=== PATIENT | female | born 1935 | race Caucasian/White ===

== ENCOUNTER → 2017-10-31 | Outpatient (CLI) | payer MEDICARE, OTHER ==
[~2017-10-31] MED LIST: FURO20; LEVSOD88; METO5A PO; Pepcid40 MG PO; Ultram50 MG PO; ZOLP10 PO
== END ==
LOC: LAB EV 12:02
DX: N39.0 Urinary tract infection, site not specified (principal)
CPT/HCPCS: 87077; 87086; 87186

== ENCOUNTER → 2018-11-26 | Outpatient (CLI) | payer MEDICARE, OTHER | END | disposition home or self-care (01) | LOC: LAB SHORT 15:57 → PLD 15:57 | DX: L92.3 Foreign body granuloma of the skin and subcutaneous tissue (principal); Z18.9 Retained foreign body fragments, unspecified material; L81.8 Other specified disorders of pigmentation | CPT/HCPCS: 88305 ==

== ENCOUNTER → 2019-10-06 | Outpatient (CLI) | payer MEDICARE, OTHER ==
[2019-10-08 13:44] LABS: Stool Occult Bld Immuno 1 Negative (NEGATIVE); Stool Occult Bld Immuno 2 Negative (NEGATIVE)
== END | disposition home or self-care (01) ==
LOC: LAB EV 10:00
PROVIDERS: Internal Medicine Gastroenterology
DX: K57.30 Diverticulosis of large intestine without perforation or abscess without bleeding (principal); Z86.010 Personal history of colon polyps
CPT/HCPCS: 82274

== ENCOUNTER → 2019-12-12 | Outpatient (CLI) | payer MEDICARE, OTHER | END | disposition home or self-care (01) | LOC: LAB SHORT 08:51 → PLD 08:51 | DX: D48.5 Neoplasm of uncertain behavior of skin (principal) | CPT/HCPCS: 88305 ==

== ENCOUNTER 2020-07-10 21:44 | Emergency (ER) | payer MEDICARE, OTHER ==
[~2020-07-10] VITALS: Ht 154.9 cm; Wt 68.0 kg
[2020-07-10 22:48] LABS: BASOPHILS ABSOLUTE AUTO 0.02 K/mm3 (0.00-0.23); BASOPHILS PERCENT AUTO 0 % (0-2); EOSINOPHILS ABSOLUTE AUTO 0.06 K/mm3 (0.00-0.68); EOSINOPHILS PERCENT AUTO 1 % (0-6); Hematocrit 42.3 % (33.0-51.0); Hemoglobin 13.5 g/dL (11.5-16.0); IMMATURE GRAN ABSOLUTE AUTO 0.01 K/mm3 (0.00-0.10); IMMATURE GRAN PERCENT AUTO 0 % (0-1); LYMPHOCYTES ABSOLUTE AUTO 1.09 K/mm3 (0.84-5.20); LYMPHOCYTES PERCENT AUTO 20 % (21-46); MONOCYTES ABSOLUTE AUTO 0.29 K/mm3 (0.16-1.47); MONOCYTES PERCENT AUTO 5 % (4-13); Mean Corpuscular HGB 29.7 pg (26.0-34.0); Mean Corpuscular HGB Conc 31.9 g/dL (31.5-36.5); Mean Corpuscular Volume 93 fL (80-100); Mean Platelet Volume 10.6 fL (9.1-12.4); NEUTROPHILS ABSOLUTE AUTO 3.96 K/mm3 (1.96-9.15); NEUTROPHILS PERCENT AUTO 73 % (41-73); Platelet Count 322 K/mm3 (150-400); RDW Coefficient Variation 12.3 % (11.7-14.2); RDW Standard Deviation 42.5 fL (35.1-46.3); Red Blood Cell Count 4.55 M/mm3 (3.80-5.20); White Blood Cell Count 5.43 K/mm3 (4.00-11.30)
[2020-07-10 23:01] LABS: Alanine Aminotransfer (ALT/SGP 29 U/L (12-78); Albumin, Blood 3.8 g/dL (3.4-5.0); Albumin/Globulin Ratio 1.2 (0.8-1.8); Alk Phos 81 U/L (50-136); Anion Gap 6 mmol/L (6-16); Aspartate Aminotrans (AST/SGOT 20 U/L (12-37); Bilirubin, Total 0.3 mg/dL (0.1-1.0); Blood Urea Nitrogen 19 mg/dL (8-24); Bun/Creatinine Ratio 23.3 (12.0-20.0); CO2, Blood 25 mmol/L (21-32); Calcium, Blood 9.3 mg/dL (8.5-10.1); Chloride, Blood 106 mmol/L (98-108); Creatinine, Blood 0.82 mg/dL (0.40-1.00); Globulin, Blood 3.3 g/dL (2.2-4.0); Glomerular Filtration Rate >60 (60-); Glucose, Blood 175 mg/dL (70-99); Potassium, Blood 3.8 mmol/L (3.5-5.5); Sodium, Blood 137 mmol/L (136-145); Total Protein, Blood 7.1 g/dL (6.4-8.2); Troponin I <0.015 ng/mL (0.000-0.040)
== END 2020-07-11 01:37 | disposition home or self-care (01) ==
LOC: ER 21:44
PROVIDERS: Physician Assistant
DX: K44.9 Diaphragmatic hernia without obstruction or gangrene (principal); F32.9 Major depressive disorder, single episode, unspecified; E03.9 Hypothyroidism, unspecified; Z87.891 Personal history of nicotine dependence; Z79.899 Other long term (current) drug therapy
CPT/HCPCS: 36415; 71046; 80053; 84484; 85025; 93005; 93010; 99284-25

== ENCOUNTER 2020-08-20 11:51 | Day surgery (SDC) | payer MEDICARE, OTHER ==
[~2020-08-20] VITALS: Ht 157.5 cm; Wt 68.4 kg
[~2020-08-20 11:51] MED LIST changes: +AMBIEN10 MG PO; +BUME1 PO; +DYAZIDE 37.5-21 EACH PO; +EUTHYROX50 MCG PO; +FLONASE ALLERG9.9 M2; +Prozac20 MG PO; +Voltaren100 GM TOP; +Zovirax Cream 5%2 GM
== END 2020-08-20 14:07 | disposition home or self-care (01) ==
LOC: ORSCSDS 11:51
PROVIDERS: Surgery
PROC: 0DB68ZX Excision of Stomach, Via Natural or Artificial Opening Endoscopic, Diagnostic (ICD-10-PCS; principal; 2020-08-20 13:00)
DX: R10.13 Epigastric pain (principal); K44.9 Diaphragmatic hernia without obstruction or gangrene; R11.0 Nausea; K31.89 Other diseases of stomach and duodenum; E66.9 Obesity, unspecified; Z68.30 Body mass index [BMI] 30.0-30.9, adult; Z87.891 Personal history of nicotine dependence; Z79.899 Other long term (current) drug therapy
CPT/HCPCS: 88305; 88342; J2704; J7120

== ENCOUNTER 2020-09-23 06:18 | Day surgery (SDC) | payer MEDICARE, OTHER ==
[~2020-09-23] VITALS: Ht 154.9 cm; Wt 68.9 kg
[~2020-09-23 06:18] MED LIST changes: +BAKING SODA; +EFUDEX40 GM TOP; +EXCEDRIN ES PO; +TEMOVATE15 G1 TOP; -Zovirax Cream 5%2 GM; +Zovirax Cream 5%2 GM TOP
--- NOTE | 2020-09-23 06:59 | NUR ---
PT ADMITTED TO [facility]. AGREES WITH PLANNED SURGERY. LUNG SOUNDS CLEAR.
--- NOTE | 2020-09-23 11:45 | NUR ---
"oh my chest hurts" pt drowsy does not open her eyes or follow commands pt has dermabond x5 to abd with scant brusing noted pt has absent bt's pt given a wet sponge and mouth moisturizer applied to lips bed alarm placed
--- NOTE | 2020-09-23 15:04 | NUR ---
pt more alert stated that her shoulder hurts and her throat pt's s/o at bedside
--- NOTE | 2020-09-23 17:20 | NUR ---
dr silva by to see pt ok to have sips of juice and ice chips cepacol lozenges given
--- NOTE | 2020-09-24 04:13 | NUR ---
SHIFT SUMMARY POD#1. AAOX4. DISCOMFORT CONTROLLED WITH 25mcg FENTANYL X2 THIS SHIFT. NO NAUSEA/EMESIS. ABD INCISIONS WITH WOUND GLUE + SMALL AMOUNT OF BRUISING, NO CHANGE THIS SHIFT. PT UP TO RESTROOM 1 PERSON MODERATE ASSIST TO BSC WITH FWW. NPO. PT RESTED WELL T/O NIGHT. CALL LIGHT WITHIN REACH.
[2020-09-24 04:27] LABS: BASOPHILS PERCENT AUTO 0 % (0-2); EOSINOPHILS PERCENT AUTO 0 % (0-6); Hemoglobin 10.7 g/dL (11.5-16.0); IMMATURE GRAN ABSOLUTE AUTO 0.02 K/mm3 (0.00-0.10); IMMATURE GRAN PERCENT AUTO 0 % (0-1); LYMPHOCYTES ABSOLUTE AUTO 1.04 K/mm3 (0.84-5.20); LYMPHOCYTES PERCENT AUTO 12 % (21-46); MONOCYTES ABSOLUTE AUTO 0.89 K/mm3 (0.16-1.47); MONOCYTES PERCENT AUTO 11 % (4-13); Mean Corpuscular HGB 29.5 pg (26.0-34.0); Mean Corpuscular HGB Conc 31.5 g/dL (31.5-36.5); Mean Corpuscular Volume 94 fL (80-100); Mean Platelet Volume 11.2 fL (9.1-12.4); NEUTROPHILS ABSOLUTE AUTO 6.48 K/mm3 (1.96-9.15); NEUTROPHILS PERCENT AUTO 77 % (41-73); Platelet Count 209 K/mm3 (150-400); RDW Coefficient Variation 13.1 % (11.7-14.2); Red Blood Cell Count 3.63 M/mm3 (3.80-5.20); White Blood Cell Count 8.43 K/mm3 (4.00-11.30)
[2020-09-24 04:47] LABS: Anion Gap 6 mmol/L (6-16); Blood Urea Nitrogen 20 mg/dL (8-24); Bun/Creatinine Ratio 28.2 (12.0-20.0); CO2, Blood 25 mmol/L (21-32); Calcium, Blood 8.2 mg/dL (8.5-10.1); Chloride, Blood 109 mmol/L (98-108); Creatinine, Blood 0.71 mg/dL (0.40-1.00); Glomerular Filtration Rate >60 (60-); Glucose, Blood 130 mg/dL (70-99); Potassium, Blood 4.2 mmol/L (3.5-5.5); Sodium, Blood 140 mmol/L (136-145)
[2020-09-24] MEDS ORDERED: HYDR1TAB94 PO (15:23)
[2020-09-24] MEDS ORDERED: METO5A PO (15:24)
[2020-09-24] MEDS ORDERED: ONDA4ODT MM (15:24)
--- NOTE | 2020-09-24 15:28 | NUR ---
HARD RX FOR NORCO + ZOFRAN + REGLAN GIVEN TO PT'S TO FILL AT PHARMACY.
--- NOTE | 2020-09-24 16:23 | NUR ---
SHIFT SUMMARY PT DOING WELL TODAY. DENIES NEED FOR PAIN MEDICATIONS. SHARAN CLEAR LIQ DIET AND ADVANCING TO FULL LIQ FOR DINNER. INDEP IN ROOM TO BRP. ENCOURAGING TO SIT IN CHAIR AND AMBULATE. ENCOURAGING I/S USE AND DEEP BREATHING. LAP SITES TO ABD REMAIN CDI. DR. FOSTER REPORTS HE WOULD ROUND LATER THIS EVENING AND DISCUSS POSSIBLY DISCHARGING HOME THIS EVENING IF PT COMFORTABLE WITH PLAN.
--- NOTE | 2020-09-24 17:32 | NUR ---
PT DISCHARGING HOME TOMORROW.
--- NOTE | 2020-09-25 07:37 | NUR ---
SHIFT SUMMARY POD#2. AAOX4. DISCOMFORT AT TOLERABLE LEVEL T/O NIGHT, DENIES PAIN MEDICATIONS/NAUSEA. ABD INCISION BAKARI WITH WOUND GLUE C/D/I, DECREASED BRUISING NOTED FROM PREVIOUS SHIFT. INDEPENDENT IN ROOM. TOLERATING DIET WELL. PT REPORTING FLATUS THIS SHIFT, NO BM. DR FOSTER IN ROOM TO SEE PT THIS AM. PT NOW SITTING UP IN BED AWAITING BREAKFAST WITH CALL LIGHT IN REACH, REPORT TO DAY SHIFT RN.
--- NOTE | 2020-09-25 08:25 | NUR ---
DISCHARGE PT EDUCATED ON AND RECEIVED PRINTED DISCHARGE INSTRUCTIONS AND VERBALIZED AN UNDERSTANDING. HARD RX GIVEN TO SPOUSE YESTERDAY TO FILL. IV DC'D LAST NOC. PT GATHERING PERSONAL BELONGINGS AND GETTING DRESSED. SPOUSE CALLED AND NOTIFIED OF DISCHARGE AND IS ON HIS WAY HERE TO PICK HER UP.
== END 2020-09-25 08:50 | disposition home or self-care (01) ==
LOC: ORSCMMR 06:18 → SURS 06:20 → PRE IP 06:20 → EDSTATUS 07:30 → SURS 11:42 → ORSCMMR 09-25 08:50
PROVIDERS: Surgery
PROC: 0BQT4ZZ Repair Diaphragm, Percutaneous Endoscopic Approach (ICD-10-PCS; principal; 2020-09-23 07:30)
DX: K44.9 Diaphragmatic hernia without obstruction or gangrene (principal); I10 Essential (primary) hypertension; K21.9 Gastro-esophageal reflux disease without esophagitis; E66.01 Morbid (severe) obesity due to excess calories; Z68.44 Body mass index [BMI] 60.0-69.9, adult; Z79.899 Other long term (current) drug therapy
CPT/HCPCS: 36415; 80048; 85025; A9270-GY; J0690; J1100; J1650; J2405; J2704; J2710; J2765; J3010; J7120

== ENCOUNTER → 2021-03-29 | Outpatient (CLI) | payer MEDICARE, OTHER ==
[~2021-03-29] MED LIST changes: +HYDR1TAB94 PO; +ONDA4ODT MM
== END | disposition home or self-care (01) ==
LOC: LAB SHORT 14:52 → LAB 14:52
DX: N39.0 Urinary tract infection, site not specified (principal)
CPT/HCPCS: 87077; 87086; 87186

== ENCOUNTER 2021-07-18 17:31 | Emergency (ER) | payer MEDICARE, OTHER ==
[~2021-07-18] VITALS: Ht 157.5 cm; Wt 59.0 kg
== END 2021-07-18 18:39 | disposition home or self-care (01) ==
LOC: ER 17:31
DX: S01.511A Laceration without foreign body of lip, initial encounter (principal); S00.31XA Abrasion of nose, initial encounter; E03.9 Hypothyroidism, unspecified; Z79.899 Other long term (current) drug therapy; Z87.891 Personal history of nicotine dependence; W01.0XXA Fall on same level from slipping, tripping and stumbling without subsequent striking against object, initial encounter; Y92.481 Parking lot as the place of occurrence of the external cause
CPT/HCPCS: 99283

== ENCOUNTER → 2022-07-22 | Outpatient (CLI) | payer MEDICARE, OTHER | END | disposition home or self-care (01) | LOC: LAB 12:37 → LAB SHORT 12:37 | DX: N39.0 Urinary tract infection, site not specified (principal) | CPT/HCPCS: 87077; 87086; 87186 ==

== ENCOUNTER → 2023-03-22 | Outpatient (CLI) | payer MEDICARE, OTHER ==
[2023-03-22 16:48] LABS: BASOPHILS ABSOLUTE AUTO 0.04 K/mm3 (0.00-0.23); BASOPHILS PERCENT AUTO 1 % (0-2); EOSINOPHILS ABSOLUTE AUTO 0.04 K/mm3 (0.00-0.68); EOSINOPHILS PERCENT AUTO 1 % (0-6); Hematocrit 36.5 % (33.0-51.0); IMMATURE GRAN ABSOLUTE AUTO 0.01 K/mm3 (0.00-0.10); IMMATURE GRAN PERCENT AUTO 0 % (0-1); LYMPHOCYTES ABSOLUTE AUTO 1.53 K/mm3 (0.84-5.20); LYMPHOCYTES PERCENT AUTO 34 % (21-46); MONOCYTES ABSOLUTE AUTO 0.49 K/mm3 (0.16-1.47); MONOCYTES PERCENT AUTO 11 % (4-13); Mean Corpuscular HGB 31.3 pg (26.0-34.0); Mean Corpuscular HGB Conc 32.9 g/dL (31.5-36.5); Mean Corpuscular Volume 95 fL (80-100); Mean Platelet Volume 11.6 fL (9.1-12.4); NEUTROPHILS ABSOLUTE AUTO 2.44 K/mm3 (1.96-9.15); NEUTROPHILS PERCENT AUTO 54 % (41-73); Platelet Count 269 K/mm3 (150-400); RDW Coefficient Variation 12.5 % (11.7-14.2); RDW Standard Deviation 43.1 fL (35.1-46.3); Red Blood Cell Count 3.84 M/mm3 (3.80-5.20); White Blood Cell Count 4.55 K/mm3 (4.00-11.30)
[2023-03-22 17:06] LABS: Alanine Aminotransfer (ALT/SGP 14 U/L (12-78); Albumin, Blood 3.2 g/dL (3.4-5.0); Albumin/Globulin Ratio 1.1 (0.8-1.8); Alk Phos 73 U/L (50-136); Anion Gap 3 mmol/L (6-16); Aspartate Aminotrans (AST/SGOT 19 U/L (12-37); Bilirubin, Total 0.5 mg/dL (0.1-1.0); Blood Urea Nitrogen 18 mg/dL (8-24); Bun/Creatinine Ratio 20.8 (12.0-20.0); CHOL/HDL RATIO 2.9; CO2, Blood 26 mmol/L (21-32); Calcium, Blood 8.6 mg/dL (8.5-10.1); Chloride, Blood 109 mmol/L (98-108); Cholesterol 210 mg/dL (50-200); Creatinine, Blood 0.87 mg/dL (0.40-1.00); Free Thyroxine 0.99 ng/dL (0.70-1.60); Glomerular Filtration Rate 64 (60-); Glucose, Blood 129 mg/dL (70-99); HDL Cholesterol 72 mg/dL (>39); LDL/HDL RATIO 1.4; Low Density Lipoprotein Chol 97 mg/dL (0-110); Potassium, Blood 4.2 mmol/L (3.5-5.5); Sodium, Blood 138 mmol/L (136-145); Total Protein, Blood 6.2 g/dL (6.4-8.2); Triglycerides 203 mg/dL (30-160); Very Low Density Lipoprot Chol 40 mg/dL (6-32)
== END | disposition home or self-care (01) ==
LOC: LAB SHORT 14:55 → LAB 14:55
PROVIDERS: Family Medicine
DX: I10 Essential (primary) hypertension (principal); E03.8 Other specified hypothyroidism
CPT/HCPCS: 80053; 80061; 84439; 84443; 85025

== ENCOUNTER → 2024-09-02 | Outpatient (CLI) | payer MEDICARE, OTHER ==
[2024-09-02 18:00] LABS: BASOPHILS ABSOLUTE AUTO 0.05 K/mm3 (0.00-0.23); BASOPHILS PERCENT AUTO 1 % (0-2); EOSINOPHILS ABSOLUTE AUTO 0.12 K/mm3 (0.00-0.68); EOSINOPHILS PERCENT AUTO 2 % (0-6); Hematocrit 38.4 % (33.0-51.0); Hemoglobin 12.7 g/dL (11.5-16.0); IMMATURE GRAN ABSOLUTE AUTO 0.01 K/mm3 (0.00-0.10); IMMATURE GRAN PERCENT AUTO 0 % (0-1); LYMPHOCYTES ABSOLUTE AUTO 1.85 K/mm3 (0.84-5.20); LYMPHOCYTES PERCENT AUTO 31 % (21-46); MONOCYTES ABSOLUTE AUTO 0.59 K/mm3 (0.16-1.47); MONOCYTES PERCENT AUTO 10 % (4-13); Mean Corpuscular HGB 31.7 pg (26.0-34.0); Mean Corpuscular HGB Conc 33.1 g/dL (31.5-36.5); Mean Corpuscular Volume 96 fL (80-100); Mean Platelet Volume 11.3 fL (9.1-12.4); NEUTROPHILS ABSOLUTE AUTO 3.29 K/mm3 (1.96-9.15); NEUTROPHILS PERCENT AUTO 56 % (41-73); Platelet Count 287 K/mm3 (150-400); RDW Coefficient Variation 13.5 % (11.7-14.2); RDW Standard Deviation 47.8 fL (35.1-46.3); Red Blood Cell Count 4.01 M/mm3 (3.80-5.20); White Blood Cell Count 5.91 K/mm3 (4.00-11.30)
[2024-09-02 19:02] LABS: Alanine Aminotransfer (ALT/SGP 17 U/L (12-78); Albumin, Blood 3.3 g/dL (3.4-5.0); Albumin/Globulin Ratio 1.1 (0.8-1.8); Alk Phos 74 U/L (50-136); Anion Gap 9 mmol/L (3-11); Aspartate Aminotrans (AST/SGOT 16 U/L (12-37); Bilirubin, Total 0.6 mg/dL (0.1-1.0); Blood Urea Nitrogen 16 mg/dL (8-24); Bun/Creatinine Ratio 21.5 (12.0-20.0); CHOL/HDL RATIO 2.5; CO2, Blood 25 mmol/L (21-32); Calcium, Blood 8.7 mg/dL (8.5-10.1); Chloride, Blood 106 mmol/L (98-108); Cholesterol 212 mg/dL (50-200); Creatinine, Blood 0.74 mg/dL (0.40-1.00); Free Thyroxine 1.01 ng/dL (0.70-1.60); Glomerular Filtration Rate 78 (60-); Glucose, Blood 116 mg/dL (70-99); HDL Cholesterol 85 mg/dL (>39); Low Density Lipoprotein Chol 82 mg/dL (0-110); Potassium, Blood 4.1 mmol/L (3.5-5.5); Sodium, Blood 136 mmol/L (136-145); Total Protein, Blood 6.3 g/dL (6.4-8.2); Triglycerides 225 mg/dL (30-160); Very Low Density Lipoprot Chol 45 mg/dL (6-32)
[2024-09-03 13:09] LABS: Percent Saturation 38.9 % (15.0-50.0)
== END | disposition home or self-care (01) ==
LOC: LAB SHORT 16:39 → LAB 16:39
PROVIDERS: Family Medicine
DX: I10 Essential (primary) hypertension (principal); E03.8 Other specified hypothyroidism; D64.9 Anemia, unspecified; R53.83 Other fatigue
CPT/HCPCS: 80053; 80061; 82728; 83540; 83550; 84439; 84443; 85025

== ENCOUNTER → 2025-01-07 | Outpatient (CLI) | payer MEDICARE, OTHER ==
[2025-01-07 17:23] LABS: BASOPHILS ABSOLUTE AUTO 0.06 K/mm3 (0.00-0.23); BASOPHILS PERCENT AUTO 1 % (0-2); EOSINOPHILS ABSOLUTE AUTO 0.07 K/mm3 (0.00-0.68); EOSINOPHILS PERCENT AUTO 1 % (0-6); Hematocrit 39.1 % (33.0-51.0); Hemoglobin 12.9 g/dL (11.5-16.0); IMMATURE GRAN ABSOLUTE AUTO 0.01 K/mm3 (0.00-0.10); IMMATURE GRAN PERCENT AUTO 0 % (0-1); LYMPHOCYTES ABSOLUTE AUTO 2.41 K/mm3 (0.84-5.20); LYMPHOCYTES PERCENT AUTO 46 % (21-46); MONOCYTES PERCENT AUTO 10 % (4-13); Mean Corpuscular HGB 30.8 pg (26.0-34.0); Mean Corpuscular Volume 93 fL (80-100); Mean Platelet Volume 11.7 fL (9.1-12.4); NEUTROPHILS ABSOLUTE AUTO 2.24 K/mm3 (1.96-9.15); NEUTROPHILS PERCENT AUTO 42 % (41-73); Platelet Count 256 K/mm3 (150-400); RDW Coefficient Variation 13.4 % (11.7-14.2); RDW Standard Deviation 45.5 fL (35.1-46.3); Red Blood Cell Count 4.19 M/mm3 (3.80-5.20); White Blood Cell Count 5.29 K/mm3 (4.00-11.30)
[2025-01-07 20:04] LABS: Alanine Aminotransfer (ALT/SGP 23 U/L (12-78); Albumin, Blood 3.6 g/dL (3.4-5.0); Albumin/Globulin Ratio 1.3 (0.8-1.8); Alk Phos 70 U/L (50-136); Anion Gap 9 mmol/L (3-11); Aspartate Aminotrans (AST/SGOT 22 U/L (12-37); Bilirubin, Total 0.3 mg/dL (0.1-1.0); Blood Urea Nitrogen 10 mg/dL (8-24); Bun/Creatinine Ratio 13.8 (12.0-20.0); CHOL/HDL RATIO 2.8; CO2, Blood 27 mmol/L (21-32); Calcium, Blood 8.9 mg/dL (8.5-10.1); Chloride, Blood 105 mmol/L (98-108); Cholesterol 186 mg/dL (50-200); Creatinine, Blood 0.73 mg/dL (0.40-1.00); Free Thyroxine 0.86 ng/dL (0.70-1.60); Globulin, Blood 2.7 g/dL (2.2-4.0); Glomerular Filtration Rate 79 (60-); Glucose, Blood 103 mg/dL (70-99); HDL Cholesterol 67 mg/dL (>39); LDL/HDL RATIO 1.2; Low Density Lipoprotein Chol 81 mg/dL (0-110); Potassium, Blood 4.1 mmol/L (3.5-5.5); Sodium, Blood 137 mmol/L (136-145); Total Protein, Blood 6.3 g/dL (6.4-8.2); Triglycerides 191 mg/dL (30-160); Very Low Density Lipoprot Chol 38 mg/dL (6-32)
== END ==
LOC: LAB SHORT 16:10 → LAB 16:10
PROVIDERS: Family Medicine
DX: I10 Essential (primary) hypertension (principal); E03.8 Other specified hypothyroidism; R53.83 Other fatigue; D53.9 Nutritional anemia, unspecified
CPT/HCPCS: 80053; 80061; 82607; 82746; 84439; 84443; 85025